=== PATIENT | female | born 1950 | race African-American/Black ===

== ENCOUNTER → 2016-10-28 | Outpatient (CLI) | payer OTHER ==
[~2016-10-28] MED LIST: ?BP MED; ALBUTEROL17 G1 INH; ALBUTEROL17 GM INH; AMLODIPINE BESYL5 MG PO; BLOOD PRESSURE MED PO; FIORICET 50-321 EACH PO; IBUPROFEN400 MG PO; IBUPROFEN600 MG; KEFLEX500 M1 PO; LEVAQUIN750 MG PO; LORTAB 7.5-5001 TAB PO; LORTAB 7.51 TAB DOB; NORCO 5/325 TAB1 TAB PO; NORVASC PO; SPIRIVA18 MCG INH; ZOFRAN PO
--- NOTE | ~2016-10-28 | MY11 ---
[facility] RADIOLOGY TEXT RESULTS PATIENT: ANDER LEBRON LOCATION: [facility] : 52 UNIT #: [id number] AGE: [address]: VAUGHN VEGA MD SEX: F ORDER DR: [id number] [address] [address] [id number] O MR#: [id number] #: [id number] NAME: ANDRE LEBRON : 1950 SEX: F STUDY DATE/TIME: 10/28/2016 11:27 UNIT: [facility] ROOM: STUDY DESCRIPTION: MY Mammogram Screening Dig Shawn Attending Physician: Vaughn Vega M.D. Referring Physician: Vaughn Vega M.D. Ordering Physician: Vaughn Vega M.D. Primary Care Physician: Vaughn Vega M.D. MEDICAL IMAGING REPORT This report is preliminary unless electronic signature is present. EXAM Digital screening mammogram, 10/28/2016, [facility]. HISTORY 66-year-old woman positive family history, maternal aunt, postmenopausal. Annual screen. COMPARISON STUDIES 04/15/2014 TECHNIQUE Digital imaging of each breast was completed utilizing screening protocol. Review includes FDA-approved CAD device. FINDINGS Breast parenchyma is predominantly fatty replaced. Subareolar duct prominence is stable bilaterally. Single intramammary lymph node upper outer quadrant right breast is stable. There is no interval occurring mass. There are no suspicious microcalcifications and no architectural distortion. IMPRESSION Negative mammogram. Annual screening recommended. Patients over the age of 40 are entered into a reminder system with target due date for the next mammogram. A result letter will also be sent to the patient. BIRADS: 1 Negative [facility] RADIOLOGY TEXT RESULTS PATIENT: ANDRE LEBRON LOCATION: [facility] : 52 UNIT #: [id number] AGE: [address]: VAUGHN VEGA MD SEX: F ORDER DR: Dictated by... Hernandez San M.D. THIS IS AN ELECTRONICALLY VERIFIED REPORT Hernandez San M.D. at 10/28/2016 1:58 PM IMELDA/diane TD: 10/28/2016 12:05 JOB #: [id number] MEDICAL IMAGING REPORT Page 1 of 1
== END | disposition home or self-care (01) ==
LOC: SMAM 10:55
DX: Z12.31 Encounter for screening mammogram for malignant neoplasm of breast (principal)
CPT/HCPCS: G0202